=== PATIENT | male | born 1950 | race Caucasian/White ===

== ENCOUNTER → 2017-06-28 10:46 | Outpatient (CLI) | payer MEDICARE, OTHER ==
[2014-08-08 08:13] VITALS: BMI 33.0
[~2017-06-28 10:46] MED LIST: ASPIRIN EC81 M1 PO; CHOLESTYRAMIN4 G/PK1 PO; CLARITIN 10 MG10 MG PO; HYDROCODONE-APA1 TAB PO; PRAVACHOL80 MG PO; SYNTHROID50 MCG PO
== END | disposition home or self-care (01) ==
LOC: D.CT 10:46
DX: R59.0 Localized enlarged lymph nodes (principal)

== ENCOUNTER → 2017-12-29 10:12 | Outpatient (CLI) | payer MEDICARE, OTHER ==
[2014-08-08 08:13] VITALS: BMI 33.0
== END | disposition home or self-care (01) ==
LOC: D.CT 10:12
DX: R91.8 Other nonspecific abnormal finding of lung field (principal)

== ENCOUNTER → 2018-07-05 11:02 | Outpatient (CLI) | payer MEDICARE, BC | END | disposition home or self-care (01) | LOC: D.CT 11:02 | DX: R91.8 Other nonspecific abnormal finding of lung field (principal) ==

== ENCOUNTER → 2019-01-05 09:04 | Outpatient (CLI) | payer MEDICARE, BC ==
[2014-08-08 08:13] VITALS: BMI 33.0
== END ==
LOC: D.CT 09:04
PROVIDERS: ATTEND Internal Medicine Pulmonary Disease
DX: R91.8 Other nonspecific abnormal finding of lung field (principal)